=== PATIENT | male | born 1985 | race Caucasian/White ===

== ENCOUNTER 2017-03-03 04:49 | Emergency (ER) | payer MEDICAID, SELFPAY | END 2017-03-03 06:30 | disposition left against medical advice (07) | PROVIDERS: Emergency Provider Emergency Medicine; Family Provider Emergency Medicine; Visit Provider Emergency Medicine | DX: F10.120 Alcohol abuse with intoxication, uncomplicated (principal); Y90.6 Blood alcohol level of 120-199 mg/100 ml; R07.9 Chest pain, unspecified; F17.210 Nicotine dependence, cigarettes, uncomplicated; Z53.21 Procedure and treatment not carried out due to patient leaving prior to being seen by health care provider; I10 Essential (primary) hypertension; Z88.5 Allergy status to narcotic agent | CPT/HCPCS: 80053; 82550; 82553; 83880; 84484; 85025; 85378; 93005; 99283 ==

== ENCOUNTER → 2017-12-18 16:53 | Outpatient (CLI) | payer MEDICAID, SELFPAY ==
[2017-12-18 17:22] LABS: Basophils # 0.1 K/mm3 (0-0.2); Basophils % 0.6 % (0.1-2.0); Eosinophils # 0.3 K/mm3 (0.0-0.4); Eosinophils % 3.9 % (0.1-12.0); Hematocrit 45.2 % (42.0-52.0); Lymphocytes # 3.3 K/mm3 (0.7-4.5); Lymphocytes % 38.1 K/mm3 (10-50); Mean Corpuscular HGB Conc 33.1 g/dL (31.8-35.4); Mean Corpuscular Volume 90.7 fl (80-94); Mean Platelet Volume 7.8 fl (7.4-10.4); Monocytes # 0.6 K/mm3 (0.1-1.0); Monocytes % 6.9 % (1.7-9.3); Neutrophils # 4.3 K/mm3 (1.8-7.8); Neutrophils % 50.6 % (37.0-80.0); Platelet Count 213 K/mm3 (142-424); Red Blood Count 4.99 M/mm3 (4.60-6.20); Red Cell Distribution Width 13.9 % (11.5-17.5); White Blood Count 8.5 K/mm3 (4.8-10.8)
== END ==
PROVIDERS: PCP Emergency Medicine; Visit Provider Otolaryngology
DX: Z01.818 Encounter for other preprocedural examination (principal); L72.0 Epidermal cyst; L03.211 Cellulitis of face
CPT/HCPCS: 36415; 85025; 93005